=== PATIENT | male | born 1925 | race Caucasian/White ===

== ENCOUNTER 2016-06-20 22:46 | Observation (INO) | payer MEDICARE, OTHER ==
[~2016-06-20] VITALS: Ht 162.6 cm; Wt 87.0 kg
[~2016-06-20 22:46] MED LIST: ASPIRIN 32325 MG/TAB PO; COLACE 100100 MG/CAP PO; HCTZ 25MG TAB25 MG PO; LIPITOR 10MG10 MG PO; LOPRESSOR100 MG PO; NORCO 325 MG-51 TAB PO; PROCARDIA XL 3030 MG PO; SENOKOT8.6 MG PO; SYNTHROID0.075 MG/T PO; ZESTRIL 20MG TA20 MG PO
[2016-06-20] MEDS ORDERED: MONOPRIL20 MG PO (23:02)
[2016-06-20] MEDS ORDERED: ZOCOR 40MG40 MG PO (23:02)
[2016-06-20] MEDS ORDERED: ZANTAC 150MG T150 MG PO (23:03)
[2016-06-20] MEDS ORDERED: MOTRIN 800800 MG/TAB PO (23:04)
[2016-06-20 23:10] LABS: BASO # 0.1 (0.0-0.2); BASO % 0.7 % (0.0-2.0); EOS # 0.1 (0.0-0.7); EOS % 1.8 % (0-4.0); GRAN # 3.7 (1.4-6.5); GRAN % 53.5 % (42.2-75.2); HEMOGLOBIN 13.4 g/dl (13.5-18.0); LYMPH # 2.2 (1.2-3.4); MEAN CELL VOLUME 90 fl (80.0-100.0); MEAN CORPUSCULAR HEMOGLOBIN 30 pg (27.0-31.0); MEAN CORPUSCULAR HGB CONC 34 g/dl (33.0-37.0); MEAN PLATELET VOLUME 10.2 fl (7.4-10.4); MONO # 0.8 (0.1-0.6); MONO % 11.7 % (1.7-9.3); PLATELET COUNT 243 K/mm3 (130-400); RED BLOOD COUNT 4.43 M/mm3 (4.20-5.60); REDCELL DISTRIBUTION WIDTH-CV 13.1 % (11.5-14.5); WHITE BLOOD COUNT 6.8 K/mm3 (4.8-10.8)
[2016-06-20 23:14] LABS: INR 1.1 (0.8-3.0); PROTHROMBIN TIME 12.4 SECONDS (9.7-12.8)
[2016-06-20 23:21] LABS: ADJUSTED CALCIUM 9.4 mg/dL (8.4-10.2); ALBUMIN 4.2 gm/dL (3.5-5.0); BILIRUBIN,TOTAL 0.7 mg/dL (0.0-1.0); CALCIUM 9.6 mg/dL (8.4-10.2); CREATININE, serum 1.33 mg/dL (0.66-1.25); POTASSIUM 3.7 mmol/L (3.4-5.0); TOTAL PROTEIN 7.1 gm/dL (6.4-8.2)
[2016-06-20 23:32] LABS: TROPONIN-I 0.025 ng/mL (0.000-0.034)
[2016-06-21 00:50] LABS: PHOSPHOROUS 3.8 mg/dL (2.5-4.5)
[2016-06-21 01:36] VITALS: BP 121/59; PULSE 78; TEMP 97.9
[2016-06-21] MEDS ORDERED: TYLENOL 325MG325 MG PO (02:02)
[2016-06-21] MEDS ORDERED: ADVIL200 MG PO (02:03)
[2016-06-21] MEDS ORDERED: ZYRTEC 10MG10 MG PO (02:03)
[2016-06-21] MEDS ORDERED: ZOCOR 20MG20 MG (02:06)
[2016-06-21] MEDS ORDERED: ADALAT CC30 MG PO (02:07)
[2016-06-21] MEDS ORDERED: MONOPRIL20 MG PO (02:08)
[2016-06-21] MEDS ORDERED: BENADRYL50 MG PO (02:09)
[2016-06-21] MEDS ORDERED: NORCO 325 MG-51 TAB PO (02:09)
[2016-06-21 03:38] VITALS: BP 124/56; PULSE 79; TEMP 97.9
[2016-06-21 07:37] VITALS: BP 115/58; PULSE 86; TEMP 98.4
[2016-06-21 07:41] LABS: BASO % 0.4 % (0.0-2.0); GRAN # 3.9 (1.4-6.5); GRAN % 71.4 % (42.2-75.2); HEMATOCRIT 39.4 % (42.0-52.0); HEMOGLOBIN 12.7 g/dl (13.5-18.0); LYMPH # 1.4 (1.2-3.4); LYMPH % 26.5 % (20.0-51.0); MEAN CELL VOLUME 91 fl (80.0-100.0); MEAN CORPUSCULAR HEMOGLOBIN 29 pg (27.0-31.0); MEAN CORPUSCULAR HGB CONC 32 g/dl (33.0-37.0); MEAN PLATELET VOLUME 10.3 fl (7.4-10.4); MONO # 0.1 (0.1-0.6); MONO % 1.3 % (1.7-9.3); PLATELET COUNT 233 K/mm3 (130-400); RED BLOOD COUNT 4.34 M/mm3 (4.20-5.60); WHITE BLOOD COUNT 5.4 K/mm3 (4.8-10.8)
[2016-06-21 07:56] LABS: CALCIUM 8.8 mg/dL (8.4-10.2); CREATININE, serum 0.98 mg/dL (0.66-1.25); POTASSIUM 3.4 mmol/L (3.4-5.0)
[2016-06-21 08:07] LABS: TROPONIN-I 0.021 ng/mL (0.000-0.034)
[2016-06-21 08:26] LABS: THYROID STIMULATING HORMONE 0.691 uIU/mL (0.465-4.680)
[2016-06-21 09:58] LABS: PH 5 (5-8); SQUAMOUS EPITHELIAL 0-2 /hpf; URINE APPEARANCE Clear; URINE BACTERIA None Seen /hpf; URINE BILIRUBIN Negative (NEGATIVE); URINE BLOOD Negative (NEGATIVE); URINE COLOR Yellow; URINE GLUCOSE 1+ (NEGATIVE); URINE KETONE Trace (NEGATIVE); URINE RBC 0-2 /hpf; URINE UROBILINOGEN Negative (NEGATIVE)
[2016-06-21 11:10] VITALS: BP 135/68; PULSE 92; TEMP 98.3
[2016-06-21 13:27] VITALS: BP 120/61; PULSE 85; TEMP 97.9
== END 2016-06-21 15:05 | disposition home or self-care (01) ==
LOC: COL.ER 22:46 → MEDICAL 06-21 00:26
PROVIDERS: Emergency Medicine; Internal Medicine
DX: E86.0 Dehydration (principal); R53.1 Weakness; M19.90 Unspecified osteoarthritis, unspecified site; M48.00 Spinal stenosis, site unspecified; I45.10 Unspecified right bundle-branch block; I10 Essential (primary) hypertension; E78.5 Hyperlipidemia, unspecified; R35.0 Frequency of micturition; R39.12 Poor urinary stream; R35.1 Nocturia
CPT/HCPCS: G0378; G8978-GP; G8979-GP; G8987-GO; G8988-GO; J1644; J2930; J7030

== ENCOUNTER 2016-11-23 14:38 | Observation (INO) | payer MEDICARE, OTHER ==
[~2016-11-23] VITALS: Ht 170.2 cm; Wt 91.2 kg
[~2016-11-23 14:38] MED LIST changes: +ADALAT CC30 MG PO; +ADVIL200 MG PO; +BENADRYL50 MG PO; +MONOPRIL20 MG PO; +MOTRIN 800800 MG/TAB PO; +TYLENOL 325MG325 MG PO; +ZANTAC 150MG T150 MG PO; +ZOCOR 20MG20 MG PO; +ZOCOR 40MG40 MG PO; +ZYRTEC 10MG10 MG PO
[2016-11-23 15:38] LABS: BASO % 0.4 % (0.0-2.0); EOS # 0.1 (0.0-0.7); EOS % 1.4 % (0-4.0); GRAN # 5.1 (1.4-6.5); GRAN % 64.2 % (42.2-75.2); HEMATOCRIT 42.8 % (42.0-52.0); LYMPH # 1.8 (1.2-3.4); LYMPH % 22.3 % (20.0-51.0); MEAN CELL VOLUME 92 fl (80.0-100.0); MEAN CORPUSCULAR HEMOGLOBIN 30 pg (27.0-31.0); MEAN CORPUSCULAR HGB CONC 33 g/dl (33.0-37.0); MEAN PLATELET VOLUME 9.9 fl (7.4-10.4); MONO # 0.9 (0.1-0.6); MONO % 11.2 % (1.7-9.3); PLATELET COUNT 245 K/mm3 (130-400); RED BLOOD COUNT 4.65 M/mm3 (4.20-5.60); WHITE BLOOD COUNT 7.9 K/mm3 (4.8-10.8)
[2016-11-23 15:53] LABS: INR 1.1 (0.8-3.0); PROTHROMBIN TIME 11.9 SECONDS (9.7-12.8)
[2016-11-23 15:54] LABS: ADJUSTED CALCIUM 9.2 mg/dL (8.4-10.2); ALBUMIN 4.3 gm/dL (3.5-5.0); BILIRUBIN,TOTAL 0.8 mg/dL (0.0-1.0); C-REACTIVE PROTEIN 2.2 mg/dL (0.0-0.9); CALCIUM 9.4 mg/dL (8.4-10.2); CREATININE, serum 1.17 mg/dL (0.66-1.25); POTASSIUM 3.9 mmol/L (3.4-5.0); TOTAL PROTEIN 7.2 gm/dL (6.4-8.2)
[2016-11-23 15:56] LABS: PARTIAL THROMBOPLASTIN TIME 30.9 SECONDS (26.0-37.0)
[2016-11-23 16:03] LABS: TROPONIN-I 0.025 ng/mL (0.000-0.034)
[2016-11-23 18:13] LABS: COLLECTION METHOD CLEAN CATCH
[2016-11-23 18:25] LABS: MUCOUS Present /lpf; PH 5 (5-8); SQUAMOUS EPITHELIAL 0-2 /hpf; URINE APPEARANCE Clear; URINE BACTERIA None Seen /hpf; URINE BILIRUBIN Negative (NEGATIVE); URINE BLOOD 1+ (NEGATIVE); URINE COLOR Yellow; URINE GLUCOSE Negative (NEGATIVE); URINE KETONE Negative (NEGATIVE); URINE LEUKOCYTE ESTERASE Negative (NEGATIVE); URINE PROTEIN(semi-quant) Negative (NEGATIVE); URINE UROBILINOGEN Negative (NEGATIVE); URINE WBC 0-2 /hpf
[2016-11-23 18:30] VITALS: BP 101/48; PULSE 66; TEMP 97.9
[2016-11-23 20:27] VITALS: BP 108/56; PULSE 69; TEMP 98.6
[2016-11-24 00:45] VITALS: BP 120/54; PULSE 62; TEMP 97.3
[2016-11-24 04:14] VITALS: BP 109/48; PULSE 66; TEMP 97.8
[2016-11-24 07:23] LABS: CALCIUM 8.7 mg/dL (8.4-10.2); CREATININE, serum 0.81 mg/dL (0.66-1.25); MAGNESIUM 1.8 mg/dL (1.6-2.3); POTASSIUM 3.6 mmol/L (3.4-5.0)
[2016-11-24 07:53] LABS: TSH w REFLEX 1.18 uIU/mL (0.465-4.680)
[2016-11-24 08:40] VITALS: BP 111/56; PULSE 71; TEMP 97.9
[2016-11-24 11:57] VITALS: BP 104/49; PULSE 81; TEMP 97.4
[2016-11-24 16:20] VITALS: BP 115/60; PULSE 77; TEMP 97.6
[2016-11-24 20:46] VITALS: BP 116/52; PULSE 100
[2016-11-25 04:22] VITALS: BP 135/74; PULSE 81
[2016-11-25 08:57] VITALS: BP 140/78; PULSE 86; TEMP 97.9
[2016-11-25 10:02] VITALS: BP 140/78; PULSE 86; TEMP 97.9
[2016-11-25 12:58] VITALS: BP 116/56; PULSE 65; TEMP 97.6
[2016-11-25] MEDS ORDERED: ZESTRIL 20MG TA20 MG PO (16:12)
[2016-11-25] MEDS ORDERED: LIPITOR 10MG10 MG PO (16:13)
== END 2016-11-25 13:17 ==
LOC: COL.ER 14:38 → MEDICAL 16:40
PROVIDERS: Emergency Medicine; Internal Medicine
DX: M25.552 Pain in left hip (principal); M25.551 Pain in right hip; I10 Essential (primary) hypertension; R53.81 Other malaise; R13.10 Dysphagia, unspecified; E78.5 Hyperlipidemia, unspecified; E03.9 Hypothyroidism, unspecified
CPT/HCPCS: G0008; G0378; G8978-GP; G8979-GP; G8987-GO; G8988-GO; G8996-GN; G8997-GN; G8998-GN; J1650; J2765; J2930; J3010; J3301; J7030